=== PATIENT | female | born 1985 | race African-American/Black ===

== ENCOUNTER 2017-04-06 08:39 | Emergency (ER) | payer SELFPAY ==
[~2017-04-06] VITALS: Ht 160 cm; Wt 72.6 kg
[~2017-04-06 08:39] MED LIST: ALPR0.5T; PROPANOLOL
[2017-04-06] MEDS ORDERED: LABETALOL HCL 5 MG/ML 4ML SYRINGE IV ONE ×2 (09:30→11:00)
[2017-04-06 09:31] LABS: Basophils # (auto) 0 uL; Basophils % (auto) 0.6 % (0.0-2.0); CONDITION Y; Eosinophils # (auto) 0.4 uL; Eosinophils % (auto) 4.9 % (0.0-7.0); Hematocrit 35.5 % (36.0-46.0); Hemoglobin 12.1 g/dL (12.2-16.2); Lymphocytes # (auto) 2.4 uL; Mean Corpuscular Hemoglobin 32.7 pg (28.0-32.0); Mean Corpuscular Hgb Conc. 34.2 g/dL (32.0-36.0); Mean Corpuscular Volume 95.8 fL (80.0-100.0); Mean Platelet Volume 8.3 fL (7.4-10.4); Monocytes # (auto) 0.4 uL; Monocytes % (auto) 5.4 % (0.0-12.0); Neutrophils # (auto) 4.1 uL; Neutrophils % (auto) 56.1 % (37.0-80.0); Platelet Count (auto) 326 10^3/uL (140-450); Red Cell Distribution Width 12.6 % (11.6-16.0); White Blood Cell 7.3 10^3/uL (4.4-10.8)
[2017-04-06 10:13] LABS: Albumin 3.4 g/dL (3.4-5.0); Bilirubin, Total 0.2 mg/dL (0.2-1.0); Calcium 8.4 mg/dL (8.5-10.1); Magnesium 2.3 mg/dL (1.6-2.6); Potassium 3.5 mmol/L (3.5-5.1); Total Protein 8.2 g/dL (6.4-8.2)
[2017-04-06] MEDS ORDERED: IBUPROFEN 800 MG TAB PO ONE (10:15)
[2017-04-06] MEDS ORDERED: cloNIDine HCL 0.1 MG TAB PO ONE (10:15)
[2017-04-06] MEDS ORDERED: LORazepam 2MG/ML-1ML VIAL IV ONE (11:00)
[2017-04-06 11:20] VITALS: BP 140/98
== END 2017-04-06 12:07 | disposition home or self-care (01) ==
LOC: ER 08:41
DX: I10 Essential (primary) hypertension (principal); Z86.73 Personal history of transient ischemic attack (TIA), and cerebral infarction without residual deficits
CPT/HCPCS: 36415; 70450; 80053; 82962; 83735; 84484; 85025; 93005; 96374; 96375; 96376; 99285; J2060; J3490

== ENCOUNTER 2017-07-25 07:15 | Emergency (ER) | payer MEDICAID ==
[2017-07-25 09:20] LABS: Basophils # (auto) 0.1 uL; Basophils % (auto) 1.1 % (0.0-2.0); Eosinophils # (auto) 0.2 uL; Eosinophils % (auto) 2.9 % (0.0-7.0); Hematocrit 39.5 % (36.0-46.0); Hemoglobin 13.3 g/dL (12.2-16.2); Lymphocytes % (auto) 28.2 % (10.0-50.0); Mean Corpuscular Hemoglobin 32.8 pg (28.0-32.0); Mean Corpuscular Hgb Conc. 33.7 g/dL (32.0-36.0); Mean Corpuscular Volume 97.4 fL (80.0-100.0); Mean Platelet Volume 8.2 fL (6.9-10.8); Monocytes # (auto) 0.3 uL; Monocytes % (auto) 4.7 % (0.0-12.0); Neutrophils # (auto) 4.4 uL; Neutrophils % (auto) 63.1 % (37.0-80.0); Nucleated Red Blood Cells % 0.1 %; Platelet Count (auto) 375 10^3/uL (140-450); Red Cell Distribution Width 12.9 % (11.8-14.3)
[2017-07-25 09:44] LABS: Albumin 3.9 g/dL (3.4-5.0); BUN/Creatinine Ratio 18.3; Bilirubin, Total 0.2 mg/dL (0.2-1.0); Calcium 8.9 mg/dL (8.5-10.1); Potassium 3.5 mmol/L (3.5-5.1); Total Protein 8.8 g/dL (6.4-8.2)
[2017-07-25] MEDS ORDERED: cloNIDine HCL 0.1 MG TAB PO ONE (10:15)
[2017-07-25] MEDS ORDERED: LORazepam 0.5 MG TAB PO ONE (11:00)
[2017-07-25 11:17] VITALS: BP 145/91
== END 2017-07-25 11:21 | disposition home or self-care (01) ==
LOC: ER 07:15
DX: R07.89 Other chest pain (principal); F41.1 Generalized anxiety disorder; I10 Essential (primary) hypertension; R42 Dizziness and giddiness; Z91.14 Patient's other noncompliance with medication regimen; Z86.73 Personal history of transient ischemic attack (TIA), and cerebral infarction without residual deficits; Z88.8 Allergy status to other drugs, medicaments and biological substances; Z88.1 Allergy status to other antibiotic agents; Z91.040 Latex allergy status; Z79.899 Other long term (current) drug therapy
CPT/HCPCS: 36415; 70450; 71020; 80053; 84484; 85025; 93005

== ENCOUNTER 2018-01-30 10:28 | Emergency (ER) | payer MEDICAID ==
[~2018-01-30] VITALS: Ht 154.9 cm; Wt 77.6 kg
[2018-01-30] MEDS ORDERED: cloNIDine HCL 0.1 MG TAB ONE (10:47)
[2018-01-30] MEDS ORDERED: ONDANSETRON ODT 4 MG TAB PO ONE ×2 (10:49→11:30)
[2018-01-30 11:21] LABS: Basophils # (auto) 0.1 uL; Basophils % (auto) 0.8 % (0.0-2.0); Eosinophils # (auto) 0.1 uL; Eosinophils % (auto) 1.3 % (0.0-7.0); Hematocrit 38.7 % (36.0-46.0); Hemoglobin 12.9 g/dL (12.2-16.2); Lymphocytes % (auto) 37.5 % (10.0-50.0); Mean Corpuscular Hgb Conc. 33.4 g/dL (32.0-36.0); Mean Corpuscular Volume 98.9 fL (80.0-100.0); Monocytes # (auto) 0.4 uL; Neutrophils # (auto) 4.4 uL; Neutrophils % (auto) 55.4 % (37.0-80.0); Nucleated Red Blood Cells % 0.1 %; Platelet Count (auto) 317 10^3/uL (140-450); Red Blood Cells 3.91 10^6/uL (4.0-5.20); Red Cell Distribution Width 12.6 % (11.8-14.3); White Blood Cell 7.9 10^3/uL (4.4-10.8)
[2018-01-30] MEDS ORDERED: cloNIDine HCL 0.1 MG TAB PO ONE (11:30)
[2018-01-30 11:46] LABS: Alanine Aminotransferase 20 U/L (13-56); Albumin 3.9 g/dL (3.4-5.0); Alkaline Phosphatase 58 U/L (45-117); Anion Gap 9 (5-15); Aspartate Aminotransferase 10 U/L (15-37); Bilirubin, Total 0.2 mg/dL (0.2-1.0); Blood Urea Nitrogen 12 mg/dL (7-18); Calcium 8.4 mg/dL (8.5-10.1); Carbon Dioxide 24 mmol/L (21-32); Chloride 107 mmol/L (98-107); GFR African American 143 mL/min; GFR Non-African American 118 mL/min; Glucose 89 mg/dL (74-106); Magnesium 2.7 mg/dL (1.6-2.6); Potassium 3.6 mmol/L (3.5-5.1); Sodium 140 mmol/L (136-145); Total Protein 8.7 g/dL (6.4-8.2)
[2018-01-30 14:45] VITALS: BP 149/97
== END 2018-01-30 18:00 | disposition home or self-care (01) ==
LOC: ER 10:28
DX: I10 Essential (primary) hypertension (principal); R51 Headache; Z86.73 Personal history of transient ischemic attack (TIA), and cerebral infarction without residual deficits
CPT/HCPCS: 36415; 70450; 71045; 80053; 83735; 84484; 84702; 85025; 93005; 99285; Q0162

== ENCOUNTER 2018-07-22 13:09 | Emergency (ER) | payer MEDICAID ==
[~2018-07-22] VITALS: Ht 157.5 cm; Wt 80.7 kg
[2018-07-22] MEDS ORDERED: cloNIDine HCL 0.1 MG TAB PO ONE (15:15)
[2018-07-22 15:26] LABS: Basophils # (auto) 0 uL; Basophils % (auto) 0.5 % (0.0-2.0); Eosinophils # (auto) 0.3 uL; Eosinophils % (auto) 2.8 % (0.0-7.0); Hematocrit 34.9 % (36.0-46.0); Hemoglobin 11.7 g/dL (12.2-16.2); Lymphocytes % (auto) 21.3 % (10.0-50.0); Mean Corpuscular Hemoglobin 33.1 pg (28.0-32.0); Mean Corpuscular Hgb Conc. 33.6 g/dL (32.0-36.0); Mean Corpuscular Volume 98.6 fL (80.0-100.0); Monocytes # (auto) 0.5 uL; Monocytes % (auto) 5.2 % (0.0-12.0); Neutrophils # (auto) 6.6 uL; Neutrophils % (auto) 70.2 % (37.0-80.0); Nucleated Red Blood Cells % 0.1 %; Platelet Count (auto) 314 10^3/uL (140-450); Red Blood Cells 3.54 10^6/uL (4.0-5.20); Red Cell Distribution Width 12.4 % (11.8-14.3); White Blood Cell 9.4 10^3/uL (4.4-10.8)
[2018-07-22 15:29] LABS: Albumin 3.4 g/dL (3.4-5.0); Calcium 8.2 mg/dL (8.5-10.1); Magnesium 2.5 mg/dL (1.6-2.6); Potassium 3.6 mmol/L (3.5-5.1)
[2018-07-22 15:34] LABS: Bilirubin, Total 0.3 mg/dL (0.2-1.0); Total Protein 7.8 g/dL (6.4-8.2)
[2018-07-22] MEDS ORDERED: HYDROcodone-ACET 10/325MG TAB PO ONE (16:00)
[2018-07-22] MEDS ORDERED: traMADol HCL 50 MG TAB PO ONE (16:00)
[2018-07-22 16:35] VITALS: BP 134/91
== END 2018-07-22 16:53 | disposition home or self-care (01) ==
LOC: ER 13:09
DX: I16.0 Hypertensive urgency (principal); I10 Essential (primary) hypertension; F17.210 Nicotine dependence, cigarettes, uncomplicated; F12.90 Cannabis use, unspecified, uncomplicated; Z88.1 Allergy status to other antibiotic agents; Z88.5 Allergy status to narcotic agent; Z91.040 Latex allergy status; Z86.73 Personal history of transient ischemic attack (TIA), and cerebral infarction without residual deficits; Z79.899 Other long term (current) drug therapy
CPT/HCPCS: 36415; 70450; 80053; 82962; 83735; 84484; 85025; 93005

== ENCOUNTER 2020-09-16 15:42 | Emergency (ER) | payer MEDICAID ==
[~2020-09-16] VITALS: Ht 157.5 cm; Wt 89.4 kg
[2020-09-16 16:03] VITALS: BP 156/102
== END 2020-09-16 19:24 | disposition left against medical advice (07) ==
LOC: ER 15:44
DX: R05 Cough (principal); Z53.21 Procedure and treatment not carried out due to patient leaving prior to being seen by health care provider

== ENCOUNTER 2020-09-20 08:12 | Emergency (ER) | payer MEDICAID ==
[~2020-09-20] VITALS: Ht 157.5 cm; Wt 84.8 kg
[2020-09-20 08:30] VITALS: BP 144/109
[2020-09-20] MEDS ORDERED: cefTRIAXone SOD 1,000 MG VL IM ONE (10:00)
== END 2020-09-20 10:54 | disposition home or self-care (01) ==
LOC: ER 08:12
DX: U07.1 COVID-19 (principal); J12.82 Pneumonia due to coronavirus disease 2019
CPT/HCPCS: 36415; 71045; 87426; 96372; 99284; J0696

== ENCOUNTER 2024-07-12 14:46 | Inpatient (IN) | payer MEDICAID ==
[~2024-07-12] VITALS: Ht 154.9 cm; Wt 102.0 kg
--- NOTE | 2024-07-12 15:02 | ED.PDOC ---
HPI Comments 38 year old female presents to the ED with chief complaint of chest pain. Patient reports that she had visited her painter set today and her BP was reading 170/140, so she was advised to call her PCP, who had then told her to come in today. Patient relays that while at her PCP's office, her BP read 160/100s, so she was advised to come into the ED for further evaluation. Patient states she has been experiencing a headache with associated midsternal, stabbing chest pain. Patient notes that she has a history of TIA last happening 5 years ago. Patient denies any N/V/D, SOB, cough, dizziness, fever, or chills. Chief Complaint: Chest Pain Time Seen by MD: 14:58 Primary Care Provider: SHER Reviewed Notes: Nurses Notes, Medications, Allergies Allergies: Coded Allergies: Erythromycin (Verified Allergy, Mild, 02/27/10) Latex (Verified Allergy, Mild, 01/07/11) Codeine (Unverified Allergy, Unknown, 07/25/17) Penicillins (Verified Allergy, Unknown, 07/12/24) Home Meds Reported Medications Alprazolam (Xanax) 0.5 Mg Tb 12/14/11 [Propanolol] No Conflict Check, 0 Refills 01/07/11 Information Source: Patient Mode of Arrival: Ambulatory Severity: Moderate Timing: Hours Duration: Since onset Prehospital treatment: None Location: Substernal Radiation: No Radiation Quality: Stabbing Onset: At Rest Cardiac Risk Factors: HTN PE Risk Factors: None History of: None Past Medical History PAST MEDICAL HISTORY: Anxiety, CVA, HTN, TIA Surgical History: BTL, SLEEVE TAILOR History: No Pertinent SLEEVE TAILOR History Family History Family History: No family hx of HTN Social History Smoker: Cigarettes Alcohol: Occasionally Drugs: Marijuana Lives In: Home Constitutional: denies: chills, diaphoresis, fatigue, fever, malaise, sweats, weakness, others EENTM: denies: blurred vision, double vision, ear bleeding, ear discharge, ear drainage, ear pain, ear ringing, eye pain, eye redness, hearing loss, mouth pain, mouth swelling, nasal discharge, nose bleeding, nose congestion, nose pain, photophobia, tearing, throat pain, throat swelling, voice changes, others Respiratory: denies: cough, hemoptysis, orthopnea, SOB at rest, shortness of breath, SOB with excertion, stridor, wheezing, others Cardiovascular: reports: chest pain; denies: dizzy spells, diaphoresis, Dyspnea on exertion, edema, irregular heart beat, left arm pain, lightheadedness, palpitations, PND, syncope, others Gastrointestinal: denies: abdomen distended, abdominal pain, blood streaked bowels, constipated, diarrhea, dysphagia, difficulty swallowing, hematemesis, melena, nausea, poor appetite, poor fluid intake, rectal bleeding, rectal pain, vomiting, others Genitourinary: denies: abnormal vagina bleeding, burning, dyspareunia, dysuria, flank pain, frequency, hematuria, incontinence, pain, , vagina discharge, urgency, others Neurological: reports: headache; denies: dizziness, fainting, left sided numbness, left sided weakness, numbness, paresthesia, pre-existing deficit, right sided numbness, right sided weakness, seizure, speech problems, tingling, tremors, weakness, others Musculoskeletal: denies: back pain, gout, joint pain, joint swelling, muscle pain, muscle stiffness, neck pain, others Integumetry: denies: bruises, change in color, change in hair/nails, dryness, laceration, lesions, lumps, rash, wounds, others Allergic/Immunocompromised: denies: Difficulty Healing, Frequent Infections, Hives, Itching, others Hematologic/Lymphatic: denies: anemia, blood clots, easy bleeding, easy bruising, swollen glands, others Endocrine: denies: excessive hunger, excessive sweating, excessive thirst, excessive urination, flushing, intolerance to cold, intolerance to heat, unexplained weight gain, unexplained weight loss, others Psychiatric: denies: anxiety, bipolar disorder, depression, hopeless, panic disorder, schizophrenia, sleepless, suicidal, others All Other Systems: Reviewed and Negative Physical Exam General Appearance: No Apparent Distress, Normal HEENT: Normal ENT Inspection, PERRL/EOMI Neck: Full Range of Motion, Non-Tender, Normal, Normal Inspection Respiratory: Chest Non-Tender, Lungs Clear, No Accessory Muscle Use, No Respiratory Distress, Normal Breath Sounds Cardiovascular: No Edema, No JVD, No Murmur, No Gallop, Normal Peripheral Pulses, Regular Rate/Rhythm Breast Exam: Deferred Gastrointestinal: No Organomegaly, Non Tender, No Pulsatile Mass, Normal Bowel Sounds, Soft Genitalia: Deferred Pelvic: Deferred Rectal: Deferred Extremities: No calf tenderness, Normal capillary refill, Normal inspection, Normal range of motion, Non-tender, No pedal edema Musculoskeletal : Apperance: Normal Neurologic: Alert, knitter wire mesh II-XII nml as Tested, No Motor Deficits, Normal Affect, Normal Mood, No Sensory Deficits Cerebellar Function: Normal Reflexes: Normal Skin: Dry, Normal Color, Warm Lymphatic: No Adenopathy Was a procedure done? Was a procedure done?: No CP Differential Dx Differential Diagnosis: MAT Differential Diagnosis: HTN Essential, HTN Accelerated Differential Diagnosis: Gastritis, Myocardial Infarction X-Ray, Labs, Meds, VS Vital Signs Date Time Temp Pulse Resp B/P (MAP) Pulse Ox O2 Delivery O2 Flow Rate FiO2 07/12/24 18:12 69 07/12/24 16:31 Room Air* 0 21 07/12/24 16:31 98.2 80 16 153/103 (120) 100 98.2 07/12/24 15:46 73 07/12/24 14:52 77 07/12/24 14:51 99.1 80 18 166/100 (122) 98 07/12/24 14:51 99.1 80 18 166/100 (122) 98 99.1 Lab Test 07/12/24 18:00 07/12/24 15:50 07/12/24 14:55 Range/Units Troponin I High Sensitivity 22 20 21 </=34 ng/L White Blood Count 11.1 H 4.4-10.8 10^3/uL Red Blood Count 3.58 L 4.0-5.20 10^6/uL Hemoglobin 11.1 L 12.2-16.2 g/dL Hematocrit 33.9 L 36.0-46.0 % Mean Corpuscular Volume 94.6 80.0-100.0 fL Mean Corpuscular Hemoglobin 31.0 28.0-32.0 pg Mean Corpuscular Hemoglobin Concent 32.8 32.0-36.0 g/dL Red Cell Distribution Width 13.4 11.8-14.3 % Platelet Count 404 140-450 10^3/uL Mean Platelet Volume 8.6 6.9-10.8 fL Neutrophils (%) (Auto) 60.2 37.0-80.0 % Lymphocytes (%) (Auto) 30.6 10.0-50.0 % Monocytes (%) (Auto) 6.0 0.0-12.0 % Eosinophils (%) (Auto) 2.2 0.0-7.0 % Basophils (%) (Auto) 1.0 0.0-2.0 % Neutrophils # (Auto) 6.7 1.6-8.6 10 ^3/uL Lymphocytes # (Auto) 3.4 0.4-5.4 10 ^3/uL Monocytes # (Auto) 0.7 0-1.3 10 ^3/uL Eosinophils # (Auto) 0.2 0-0.8 10 ^3/uL Basophils # (Auto) 0.1 0-0.2 10 ^3/uL Nucleated Red Blood Cells 0.1 % Sodium Level 138 136-145 mmol/L Potassium Level 3.7 3.5-5.1 mmol/L Chloride Level 105 98-107 mmol/L Carbon Dioxide Level 25 20-31 mmol/L Anion Gap 8 5-15 Blood Urea Nitrogen 12 9-23 mg/dL Creatinine 0.80 0.550-1.02 mg/dL Glomerular Filtration Rate Calc 98 >90 mL/min BUN/Creatinine Ratio 15.0 10.0-20.0 Serum Glucose 85 74-106 mg/dL Calcium Level 9.7 8.7-10.4 mg/dL Chest XR: FINDINGS: Lines and Tubes: None Lungs: No focal consolidation. Pleura: No effusion. No pneumothorax. Cardiomediastinal contours: Unremarkable Bones: No acute osseous abnormality. IMPRESSION: No acute cardiopulmonary disease. Images Reviewed?: Images reviewed and evaluated by me Time of 1ST Reevaluation: 15:58 Reevaluation 1ST: Unchanged Patient Education/Counseling: Diagnosis, Treatment Family Education/Counseling: No Family Present Departure 1 Departure Time of Disposition: 20:44 (Patient presented with chest pain that was concerning for possible STEMI, ACS, PE, Pneumonia, Muscle Strain, COPD, Dissection. Data: 1. I ordered and reviewed the result of at least 3 labs including a CBC, BMP, and Troponin. 2. I independently interpreted the following tests: EKG which shows sinus rhythm and Chest X-ray which shows benign chest.Risk:This patient has a high risk of morbidity due to further diagnostic testing or treatment and may suffer from an acute cardiac or respiratory disorder. Workup reveals concern for ACS and patient should be admitted for further workup and possible expert consultation. ) Impression: Primary Impression: Acute chest pain Additional Impression: Under observation for suspected coronary artery disease Disposition: ADMITTED INPATIENT Admit to: Med Surg Condition: Serious Critical Care Note Critical Care Time?: Yes Critical care comment: Acute chest pain Authorized and Performed by: Humberto Amaral MD Total critical care time: Approximately 36 minutes Due to a high probability of clinically significant, life threatening deterioration, the patient required my highest level of preparedness to intervene emergently and I personally spent this critical care time directly and personally managing the patient. This critical care time included obtaining a history; examining the patient; pulse oximetry; ordering and review of studies; arranging urgent treatment with development of a management plan; evaluation of patient's response to treatment; frequent reassessment; and, discussions with other providers. This critical care time was performed to assess and manage the high probability of imminent, life-threatening deterioration that could result in multi-organ failure. It was exclusive of separately billable procedures and treating other patients and teaching time. Please see my other sections and the rest of the note for further information on patient assessment and treatment. Stability Stability form required: No Heart Score Heart Score: Heart Score Response (Comments) Value History N/A 0 EKG N/A 0 Age N/A 0 Risk Factors N/A 0 Troponin N/A 0 Total 0 I personally scribed for HUMBERTO AMARAL MD ([email or web address]) on 07/12/24 at 15:02. Electronically submitted by Derick Fountain ([email or web address]). I personally scribed for HUMBERTO AMARAL MD ([email or web address]) on 07/12/24 at 18:51. Electronically submitted by Derick Fountain ([email or web address]). HUMBERTO AMARAL MD Jul 12, 2024 15:02
--- NOTE | 2024-07-12 18:48 | DVH ---
XY CHEST TWO VIEWS ROUTINE CLINICAL HISTORY: chest pain COMPARISON: None TECHNIQUE: Frontal and lateral view of the chest was obtained FINDINGS: Lines and Tubes: None Lungs: No focal consolidation. Pleura: No effusion. No pneumothorax. Cardiomediastinal contours: Unremarkable Bones: No acute osseous abnormality. IMPRESSION: No acute cardiopulmonary disease.
[2024-07-12 20:01] LABS: Basophils # (auto) 0.1 10 ^3/uL (0-0.2); Eosinophils # (auto) 0.2 10 ^3/uL (0-0.8); Eosinophils % (auto) 2.2 % (0.0-7.0); Hematocrit 33.9 % (36.0-46.0); Hemoglobin 11.1 g/dL (12.2-16.2); Lymphocytes # (auto) 3.4 10 ^3/uL (0.4-5.4); Lymphocytes % (auto) 30.6 % (10.0-50.0); Mean Corpuscular Hgb Conc. 32.8 g/dL (32.0-36.0); Mean Corpuscular Volume 94.6 fL (80.0-100.0); Monocytes # (auto) 0.7 10 ^3/uL (0-1.3); Neutrophils # (auto) 6.7 10 ^3/uL (1.6-8.6); Neutrophils % (auto) 60.2 % (37.0-80.0); Nucleated Red Blood Cells % 0.1 %; Platelet Count (auto) 404 10^3/uL (140-450); Red Blood Cells 3.58 10^6/uL (4.0-5.20); Red Cell Distribution Width 13.4 % (11.8-14.3); White Blood Cell 11.1 10^3/uL (4.4-10.8)
[2024-07-12 20:09] LABS: Chloride 105 mmol/L (98-107); Potassium 3.7 mmol/L (3.5-5.1); Sodium 138 mmol/L (136-145)
[2024-07-12 20:10] LABS: Anion Gap 8 (5-15); Calcium 9.7 mg/dL (8.7-10.4); Carbon Dioxide 25 mmol/L (20-31)
[2024-07-12 20:15] LABS: Blood Urea Nitrogen 12 mg/dL (9-23); Glucose 85 mg/dL (74-106)
[2024-07-12] MEDS: ONDANSETRON HCL 4 MG/2 ML VIAL IV ONE (21:13)
[2024-07-12] MEDS: MORPHINE SULFATE 4 MG/ML SYR/VIAL IV ONE (21:14)
[2024-07-12 21:19] VITALS: PULSE 75; RESP 16; O2SAT 100
[2024-07-12] MEDS ORDERED: NITROGLYCERIN 0.4 MG SL TAB SL PRN (22:00)
[2024-07-12] MEDS ORDERED: ACETAMINOPHEN 325 MG TAB PO PRN (22:00)
[2024-07-12] MEDS ORDERED: TEMAZEPAM 15 MG CAP PO PRN (22:00)
--- NOTE | 2024-07-12 22:20 | DVHHP2 ---
History of Present Illness Reason for Visit: Chest pain History of Present Illness 38-year-old female presents for evaluation of chest pain. The patient reports a two day history of chest pain. He states that initially she had substernal squeezing like chest pain and subsequently became sharp and nonradiating. She denies nausea or vomiting reports mild shortness for breath. She also reports having a mild headache. No blurred vision or unilateral weakness. No other acute complaints reported. Past Medical History CVA and hypertension Past Surgical History and BTL Family History Noncontributory Smoke: <1 pack per day ALCOHOL: occassional Drugs: Marijuana Lives: with Family Review of Systems Review of Systems Review of systems are currently negative otherwise addressed in HPI. Allergies: Coded Allergies: Erythromycin (Verified Allergy, Mild, 02/27/10) Latex (Verified Allergy, Mild, 01/07/11) Codeine (Unverified Allergy, Unknown, 07/25/17) Penicillins (Verified Allergy, Unknown, 07/12/24) Medications Current Medications Medications Dose Ordered Sig/Chen[place] Route Start Time Stop Time Status Last Admin Dose Admin Hydralazine HCl 10 mg Q6HP PRN IV 07/12/24 22:00 Hydralazine HCl 25 mg Q12HR PO 07/12/24 22:00 Aspirin 81 mg DAILY PO 07/13/24 10:00 Atorvastatin Calcium 10 mg HS PO 07/12/24 22:00 Metoprolol Succinate 50 mg DAILY PO 07/13/24 10:00 Lisinopril 40 mg DAILY PO 07/13/24 10:00 Buspirone HCl 5 mg DAILY PO 07/13/24 10:00 Temazepam 15 mg QHSP PRN PO 07/12/24 22:00 Ondansetron HCl 4 mg Q4HP PRN IV 07/12/24 22:00 Acetaminophen 650 mg Q6HP PRN PO 07/12/24 22:00 Nitroglycerin 0.4 mg Q5MINP PRN SL 07/12/24 22:00 Morphine Sulfate 2 mg Q30M PRN IV 07/12/24 22:00 Exam Vital Signs Vital Signs Date Time Temp Pulse Resp B/P (MAP) Pulse Ox O2 Delivery O2 Flow Rate FiO2 07/12/24 21:19 75 16 100 Room Air* 0 21 07/12/24 21:19 98.3 178/94 (122) 98.3 Exam Gen: 38-year-old female in no apparent distress. Skin: Warm, dry, normal color and texture, no rash. HEENT: Normocephalic atraumatic, mucous membranes moist and pink. Neck: Cervical and supraclavicular nodes normal without enlargement, trachea is midline, thyroid gland is normal without masses. Pulmonary: Clear to auscultation and percussion bilaterally. Cardiac: Regular rate and rhythm. No murmur Abdomen: Soft, nontender, nondistended, bowel sounds present all 4 quadrants, no guarding, no rigidity, no organomegaly. Extremities: No cyanosis, clubbing, no edema Neuro: Cranial nerves II through XII grossly intact, normal affect and speech, no focal motor deficits. Labs/Xrays ORDERING PHYSICIAN: HUMBERTO EMMANUEL MD PROCEDURE(s): CXR2 - CHEST TWO VIEWS ROUTINE REASON: chest pain ORDER NUMBER(s): [id number], ACCESSION NUMBER(s): [id number] XY CHEST TWO VIEWS ROUTINE CLINICAL HISTORY: chest pain COMPARISON: None TECHNIQUE: Frontal and lateral view of the chest was obtained FINDINGS: Lines and Tubes: None Lungs: No focal consolidation. Pleura: No effusion. No pneumothorax. Cardiomediastinal contours: Unremarkable Bones: No acute osseous abnormality. IMPRESSION: No acute cardiopulmonary disease. Labs Test 07/12/24 18:00 07/12/24 14:55 Range/Units Troponin I High Sensitivity 22 </=34 ng/L White Blood Count 11.1 H 4.4-10.8 10^3/uL Red Blood Count 3.58 L 4.0-5.20 10^6/uL Hemoglobin 11.1 L 12.2-16.2 g/dL Hematocrit 33.9 L 36.0-46.0 % Mean Corpuscular Volume 94.6 80.0-100.0 fL Mean Corpuscular Hemoglobin 31.0 28.0-32.0 pg Mean Corpuscular Hemoglobin Concent 32.8 32.0-36.0 g/dL Red Cell Distribution Width 13.4 11.8-14.3 % Platelet Count 404 140-450 10^3/uL Mean Platelet Volume 8.6 6.9-10.8 fL Neutrophils (%) (Auto) 60.2 37.0-80.0 % Lymphocytes (%) (Auto) 30.6 10.0-50.0 % Monocytes (%) (Auto) 6.0 0.0-12.0 % Eosinophils (%) (Auto) 2.2 0.0-7.0 % Basophils (%) (Auto) 1.0 0.0-2.0 % Neutrophils # (Auto) 6.7 1.6-8.6 10 ^3/uL Lymphocytes # (Auto) 3.4 0.4-5.4 10 ^3/uL Monocytes # (Auto) 0.7 0-1.3 10 ^3/uL Eosinophils # (Auto) 0.2 0-0.8 10 ^3/uL Basophils # (Auto) 0.1 0-0.2 10 ^3/uL Nucleated Red Blood Cells 0.1 % Sodium Level 138 136-145 mmol/L Potassium Level 3.7 3.5-5.1 mmol/L Chloride Level 105 98-107 mmol/L Carbon Dioxide Level 25 20-31 mmol/L Anion Gap 8 5-15 Blood Urea Nitrogen 12 9-23 mg/dL Creatinine 0.80 0.550-1.02 mg/dL Glomerular Filtration Rate Calc 98 >90 mL/min BUN/Creatinine Ratio 15.0 10.0-20.0 Serum Glucose 85 74-106 mg/dL Calcium Level 9.7 8.7-10.4 mg/dL Assessment/Plan Assessment/Plan Assessment Chest pain rule out ACS Accelerated hypertension Plan Admit the patient to telemetry to the hospitalist ACS protocol Resume home medications Continue treatment per orders. Plan discussed with: Patient My Orders Orders - PERCY CROOKS AGACNP Procedure Category Date Status Time Hydralazine Injection PHA 07/12/24 In Process (Apresoline Inject 22:00 Hydralazine Hcl PHA 07/12/24 In Process Tablet (Apresoline 22:00 Aspirin Tablet PHA 07/13/24 In Process 10:00 Atorvastatin (Lipitor) PHA 07/12/24 In Process 22:00 Metoprolol Xl PHA 07/13/24 In Process Succinate (Toprol Xl) 10:00 Lisinopril Tablet PHA 07/13/24 In Process (Zestril Tablet) 10:00 Buspirone Hcl Tablet PHA 07/13/24 In Process (Buspar Tablet) 10:00 * Cardiology Consult CONS 07/12/24 Transmitted 21:52 Basic Metabolic Panel LAB 07/13/24 Verified 04:00 Admit ADMIT 07/12/24 Transmitted 21:52 Temazepam (Restoril) PHA 07/12/24 In Process 22:00 Ondansetron Hcl PHA 07/12/24 In Process (Zofran) 22:00 Cardiac DIET 07/13/24 Transmitted Diet-2gna,Lofat,Lochol Breakfast Echo 2d Mode Cardiac US 07/12/24 Logged DOP 21:52 Condition: Fair DEANA 07/12/24 In Process 21:52 Acetaminophen Tablet PHA 07/12/24 In Process (Tylenol Tablet) 22:00 Bedrest With Bathroom DEANA 07/12/24 In Process Privileg 21:52 Nitroglycerin PHA 07/12/24 In Process Sublingual (Ntrostat 22:00 Morphine Sulfate PHA 07/12/24 In Process Injection 22:00 Stat Ekg For Chest DEANA 07/12/24 In Process Pain 21:52 Notify Md Of Changes [facility] 07/12/24 In Process From Base 21:52 Compensation Adjuster For [facility] 07/12/24 In Process 24 Hours 21:52 Emergency Dysrhythmia [facility] 07/12/24 In Process Protocol 21:52 Rhythm Strips Once [facility] 07/12/24 In Process Every Shift 21:52 Oxygen By Nasal RT 07/12/24 Transmitted Cannula 21:52 Date of Service: Jul 12, 2024 Billing Provider: PERCY CROOKS Common Visit Codes: [id number] INP/OBS CARE (HIGH) PERCY CROOKS Jul 12, 2024 22:20
[2024-07-12] MEDS: ATORVASTATIN 20 MG TAB PO SCH (22:46)
[2024-07-12] MEDS: hydrALAZINE HCL 25 MG TAB PO SCH (22:47)
[2024-07-12 23:30] VITALS: PULSE 80; RESP 18; O2SAT 100
[2024-07-13] VITALS (9 sets, daily range): BP systolic 95–157; BP diastolic 73–108; PULSE 78–95; RESP 18–20; TEMP 97.8–98.4; O2SAT 98–100
[2024-07-13] MEDS ORDERED: LISI40TA16 PO (02:42)
[2024-07-13] MEDS ORDERED: METO25TA93 PO (02:42)
[2024-07-13] MEDS ORDERED: TRAM50TA2 PO (02:42)
[2024-07-13] MEDS: hydrALAZINE HCL 20 MG/ML VL IV PRN (03:55)
[2024-07-13 07:14] LABS: Calcium 9.5 mg/dL (8.7-10.4); Chloride 105 mmol/L (98-107); Potassium 3.4 mmol/L (3.5-5.1); Sodium 139 mmol/L (136-145)
[2024-07-13 07:15] LABS: Anion Gap 8 (5-15); Carbon Dioxide 26 mmol/L (20-31)
[2024-07-13 07:20] LABS: BUN/Creatinine Ratio 17.2 (10.0-20.0); Blood Urea Nitrogen 10 mg/dL (9-23); Glucose 89 mg/dL (74-106)
--- NOTE | 2024-07-13 09:09 | ECG ---
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
--- NOTE | 2024-07-13 09:09 | ECG ---
[facility] Test Date: 2024-07-12 Test Time: 14:52:57 Pat Name: YVROSE ANTHONY Department: ER Room: 0272T A Gender: F Egg Caser: STEPHANIE : 1985 Requested By: HUMBERTO EMMANUEL Order Number: [id number] Reading MD: Lj Osorio Measurements Intervals [place] Rate: 77 P: 32 [place]: 134 QRS: 52 QRSD: 78 T: 6 QT: 380 QTc: 431 Interpretive Statements Sinus rhythm Probable LVH with secondary repol abnrm Electronically Signed On 07-14-2024 14:55:07 PDT by Lj Osorio Please click the below link to view image of tracing.
--- NOTE | 2024-07-13 09:10 | ECG ---
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
[2024-07-13] MEDS: busPIRone HCL 10 MG TAB PO SCH (09:25)
[2024-07-13] MEDS: ASPirin 81 mg TAB PO SCH (09:27)
[2024-07-13] MEDS: LISINOPRIL 20 MG TAB PO SCH (09:27)
[2024-07-13] MEDS: POTASSIUM CHL 20 Meq TABLET PO ONE (09:28)
--- NOTE | 2024-07-13 09:28 | DVHINCON2 ---
Date Seen: Jul 13, 2024 Referring Physician EDUARDO Durand Reason for Consultation Chest pain History of Present Illness This is a 38-year-old female who presented to the emergency room with a chief complaint of chest pain since 07/12/24 at 1300. The patient reports she presented to her pain management appointment when she was found with a blood pressure of 170/140 mmHg and was suggested to follow-up with her PCP for blood pressure management. State taking her morning Lisinopril 40mg with scheduled metoprolol in the evenings. She followed-up with her PCP, Dr. Walton, later on during the day with complains of chest pain and PERRY. Described the chest pain as substernal, nonradiating, initially sharp/stabbing in nature and then squeezing, constant, and associated with PERRY, left hand numbness, and a SBP in the 170s mmHg. PCP referred her to the emergency room for further evaluation. She underwent multiple 12 lead electrocardiogram revealing a sinus rhythm with nonspecific ST changes to inferior leads which improved on the 3rd EKG once her blood pressure was well controlled. Serial troponin levels are negative. Significant medical history includes hypertension, TIAs x3, chronic pain syndrome to lower back/plantar fasciitis with tramadol therapy, anxiety, and morbid obesity. Past Medical History Past medical history reviewed. No other significant than mentioned above. Past Surgical History Past surgical history reviewed. No other significant than mentioned above. Family History: Diabetes mellitus G8 FATHER Hypertension G8 MOTHER G8 FATHER Family History Family history reviewed. Social History Denies the use of illicit drugs, alcohol, or tobacco use. Allergies: Coded Allergies: Erythromycin (Verified Allergy, Mild, 02/27/10) Latex (Verified Allergy, Mild, 01/07/11) Codeine (Unverified Allergy, Unknown, 07/25/17) Penicillins (Verified Allergy, Unknown, 07/12/24) Home Meds Reported Medications Metoprolol Succinate (Metoprolol Succinate Er) 25 Mg Tab, 1 TAB PO DAILY, #30 TAB 5 Refills 07/13/24 Tramadol Hcl (Tramadol Hcl) 50 Mg Tab, 50 MG PO, TAB 07/13/24 Lisinopril (Lisinopril) 40 Mg Tab, 1 TAB PO DAILY, #30 TAB 5 Refills 07/13/24 Home Meds Home medications reviewed. Current Medications Current Medications Medications (Trade) Dose Ordered Sig/Chencho Route PRN Reason Start Time Stop Time Status Last Admin Hydralazine HCl (Apresoline Injection) 10 mg Q6HP PRN IV SBP>150 07/12/24 22:00 07/13/24 03:55 Hydralazine HCl (Apresoline Tablet) 25 mg Q12HR PO 07/12/24 22:00 07/12/24 22:47 Aspirin 81 mg DAILY PO 07/13/24 10:00 Atorvastatin Calcium (Lipitor) 10 mg HS PO 07/12/24 22:00 07/12/24 22:46 Metoprolol Succinate (Toprol Xl) 50 mg DAILY PO 07/13/24 10:00 Lisinopril (Zestril Tablet) 40 mg DAILY PO 07/13/24 10:00 Buspirone HCl (Buspar Tablet) 5 mg DAILY PO 07/13/24 10:00 Temazepam (Restoril) 15 mg QHSP PRN PO FOR INSOMNIA 07/12/24 22:00 Ondansetron HCl (Zofran) 4 mg Q4HP PRN IV NAUSEA / VOMITING 07/12/24 22:00 Acetaminophen (Tylenol Tablet) 650 mg Q6HP PRN PO PAIN SCALE 1-3 OR TEMP>100.4 07/12/24 22:00 Nitroglycerin (Ntrostat Sublingual) 0.4 mg Q5MINP PRN SL FOR CHEST PAIN 07/12/24 22:00 Morphine Sulfate 2 mg Q30M PRN IV FOR CHEST PAIN 07/12/24 22:00 Review of Systems Constitutional: No symptom reported Ears, Nose, & Throat: No symptom reported Eyes: No symptom reported Neurological: PERRY, left hand numbness Pulmonary/Respiratory: No symptom reported Cardiovascular: Chest pain Gastrointestinal: No symptom reported Genitourinary: No symptom reported Musculoskeletal: No symptom reported Skin: No symptom reported Psychiatric: No symptom reported Endocrine: No symptom reported Hemotologic/Lymphatic: No symptom reported Vital Signs Vital Signs Date Time Temp Pulse Resp B/P (MAP) Pulse Ox O2 Delivery O2 Flow Rate FiO2 07/13/24 08:38 98.0 83 20 123/87 (99) 99 98.0 07/12/24 23:30 Room Air* 0 21 Physical Exam General Appearance: Cooperative. Well developed. Morbidly obese. In no acute distress Head Exam: Normal inspection Neck Exam: Normal inspection. Non-tender. Normal alignment Pulmonary/Respiratory: Chest non-tender. Clear bilateral breath sounds Cardiovascular/Chest: Regular rate and rhythm. S1, S2. NSR. No murmurs. No JVD. Peripheral Pulses: 2+ Radial (R). 2+ Radial (L). 2+ Pedal (R). 2+ Pedal (L) Abdominal Exam: Normal bowel sounds. Soft. Nontender. No hepatospenomegaly. No masses Ankle Exam: Negative ankle edema Lower extremities: Negative lower extremity edema Neuro/Mental Status: A&O x4. Coherent Thoughts/Psych: Normal thought pattern. Appropriate mood and affect. Good judgement and insight Appearance: In no acute distress Skin Exam: Normal inspection. Normal color. Warm. Dry Labs/Diagnostic Data Labs Test 07/13/24 05:07 07/12/24 18:00 07/12/24 14:55 Range/Units Sodium Level 139 136-145 mmol/L Potassium Level 3.4 L 3.5-5.1 mmol/L Chloride Level 105 98-107 mmol/L Carbon Dioxide Level 26 20-31 mmol/L Anion Gap 8 5-15 Blood Urea Nitrogen 10 9-23 mg/dL Creatinine 0.58 0.550-1.02 mg/dL Glomerular Filtration Rate Calc 120 >90 mL/min BUN/Creatinine Ratio 17.2 10.0-20.0 Serum Glucose 89 74-106 mg/dL Calcium Level 9.5 8.7-10.4 mg/dL Troponin I High Sensitivity 22 </=34 ng/L White Blood Count 11.1 H 4.4-10.8 10^3/uL Red Blood Count 3.58 L 4.0-5.20 10^6/uL Hemoglobin 11.1 L 12.2-16.2 g/dL Hematocrit 33.9 L 36.0-46.0 % Mean Corpuscular Volume 94.6 80.0-100.0 fL Mean Corpuscular Hemoglobin 31.0 28.0-32.0 pg Mean Corpuscular Hemoglobin Concent 32.8 32.0-36.0 g/dL Red Cell Distribution Width 13.4 11.8-14.3 % Platelet Count 404 140-450 10^3/uL Mean Platelet Volume 8.6 6.9-10.8 fL Neutrophils (%) (Auto) 60.2 37.0-80.0 % Lymphocytes (%) (Auto) 30.6 10.0-50.0 % Monocytes (%) (Auto) 6.0 0.0-12.0 % Eosinophils (%) (Auto) 2.2 0.0-7.0 % Basophils (%) (Auto) 1.0 0.0-2.0 % Neutrophils # (Auto) 6.7 1.6-8.6 10 ^3/uL Lymphocytes # (Auto) 3.4 0.4-5.4 10 ^3/uL Monocytes # (Auto) 0.7 0-1.3 10 ^3/uL Eosinophils # (Auto) 0.2 0-0.8 10 ^3/uL Basophils # (Auto) 0.1 0-0.2 10 ^3/uL Nucleated Red Blood Cells 0.1 % Assessment Chest pain in the setting of hypertensive urgency. Rule out structural heart disease Hypokalemia Chronic pain syndrome Hx multiple TIAs Morbid obesity Plan/Recommendation (Dr. Soria) The patient presents with chest pain in the setting of hypertensive urgency and a Heart Score of 2, low for major cardiac events. We will continue further evaluation with a transthoracic echocardiogram to assess cardiac function. We also recommend aggressive blood pressure management, a 2 g sodium diet, and weight loss. She can benefit from an outpatient stress test if deemed to be ne cessary. In the setting of an unremarkable echocardiogram, there is no further cardiac workup indicated at this time. Thank you for allowing us to participate in this patient's care. Please call if you have any questions or concerns. This medical document was created using an electronic medical record system with voice recognition software and computerized dictation system. Although this document has been carefully reviewed, there might still be some phonetic and typographical errors. Occasional wrong-word or ``sound-alike substitutions may have occurred due to the inherent limitations of voice recognition software. These areas are purely typographical due to imperfections of the software programs and do not reflect any compromise in the patient's medical care. Please read the chart carefully and recognize, using context, where these substitutions have occurred. Plan discussed with: Patient, Other Date of Service: Jul 13, 2024 Billing Provider: PHILIPP SORIA MD Cardiology Common Codes: 71786-DCBECTO INP/OBS CARE (High) DEJON LIN WINE PASTEUR[employer]ER Jul 13, 2024 09:28
[2024-07-13 09:39] LABS: Magnesium 2.3 mg/dL (1.6-2.6)
[2024-07-13] MEDS: METOPROLOL SUCCINATE XL 50 MG TAB PO SCH (10:00)
--- NOTE | 2024-07-13 11:12 | DVHDS2 ---
Discharge Summary Date of Admission Jul 12, 2024 at 21:52 Date of Discharge: Jul 13, 2024 Admitting Diagnosis Chest pain, rule out ACS Labs/Diagnostic Data: Laboratory Results Test 07/13/24 05:07 07/12/24 18:00 07/12/24 14:55 Sodium Level 139 mmol/L (136-145) Potassium Level 3.4 mmol/L (3.5-5.1) Chloride Level 105 mmol/L (98-107) Carbon Dioxide Level 26 mmol/L (20-31) Anion Gap 8 (5-15) Blood Urea Nitrogen 10 mg/dL (9-23) Creatinine 0.58 mg/dL (0.550-1.02) Glomerular Filtration Rate Calc 120 mL/min (>90) BUN/Creatinine Ratio 17.2 (10.0-20.0) Serum Glucose 89 mg/dL (74-106) Hemoglobin A1c 4.6 % A1C (<5.7) Calcium Level 9.5 mg/dL (8.7-10.4) Magnesium Level 2.3 mg/dL (1.6-2.6) Triglycerides Level 96 mg/dL (< 150) Cholesterol Level 158 mg/dL (< 200) LDL Cholesterol 88 mg/dL (< 100) HDL Cholesterol 58 mg/dL (40-59) Vitamin D 25-Hydroxy 40.2 ng/mL (30.0-100) Thyroid Stimulating Hormone (TSH) 1.85 uIU/mL (0.55-4.78) Troponin I High Sensitivity 22 ng/L (</=34) White Blood Count 11.1 10^3/uL (4.4-10.8) Red Blood Count 3.58 10^6/uL (4.0-5.20) Hemoglobin 11.1 g/dL (12.2-16.2) Hematocrit 33.9 % (36.0-46.0) Mean Corpuscular Volume 94.6 fL (80.0-100.0) Mean Corpuscular Hemoglobin 31.0 pg (28.0-32.0) Mean Corpuscular Hemoglobin Concent 32.8 g/dL (32.0-36.0) Red Cell Distribution Width 13.4 % (11.8-14.3) Platelet Count 404 10^3/uL (140-450) Mean Platelet Volume 8.6 fL (6.9-10.8) Neutrophils (%) (Auto) 60.2 % (37.0-80.0) Lymphocytes (%) (Auto) 30.6 % (10.0-50.0) Monocytes (%) (Auto) 6.0 % (0.0-12.0) Eosinophils (%) (Auto) 2.2 % (0.0-7.0) Basophils (%) (Auto) 1.0 % (0.0-2.0) Neutrophils # (Auto) 6.7 10 ^3/uL (1.6-8.6) Lymphocytes # (Auto) 3.4 10 ^3/uL (0.4-5.4) Monocytes # (Auto) 0.7 10 ^3/uL (0-1.3) Eosinophils # (Auto) 0.2 10 ^3/uL (0-0.8) Basophils # (Auto) 0.1 10 ^3/uL (0-0.2) Nucleated Red Blood Cells 0.1 % Other Laboratory Tests 07/13/24 05:07 07/12/24 14:55 Brief Hx & Hospital Course: History of Present Illness 38-year-old female presents for evaluation of chest pain. The patient reports a two day history of chest pain. He states that initially she had substernal squeezing like chest pain and subsequently became sharp and nonradiating. She denies nausea or vomiting reports mild shortness for breath. She also reports having a mild headache. No blurred vision or unilateral weakness. No other acute complaints reported. Course of hospitalization: Discussion was made with the patient regarding her symptoms. She states that all of her symptoms have resolved. Cardiology consultation has been obtained. Chest x-ray unremarkable. EKG x3 unremarkable. Troponins x3 all normal. Patient was pending echocardiogram. The patient was agreeable to be discharged home after echocardiogram has been read if there are no abnormalities that need follow up. She will continue with all of her previous antihypertensives in addition to new prescription provided by her PCP, hydrochlorothiazide. Physical examination General: Alert and Oriented x3. No acute distress. Well-nourished. Obese Eyes: EOMI. Anicteric. HENT: Moist mucous membranes. Lungs: Clear to auscultation bilaterally. No accessory muscle use. Cardiovascular: Regular rate and rhythm. No murmur. No JVD. Abdomen: Soft, non-tender and non-distended. No palpable masses. Extremities: No edema. Non-tender. Skin: No rashes or lesions. Warm. Neurologic: No focal neurological deficits. CN II-XII grossly intact, but not individually tested. Psychiatric: Cooperative. Appropriate mood and affect. Total time spent with patient discussing and formulating plan of care: 35 minutes. This medical document was created using an electronic medical record system with [employer] dictation system. Although this document has been carefully reviewed, there may still be some phonetic and typographical errors. These areas are purely typographical due to imperfections of the software programs, and do not reflect any compromise in the patient's medical care. Consults/Reason for consult Cardiology: Chest pain Condition at Discharge: Fair Final Diagnosis/Problems List Hypertensive crisis Secondary Diagnosis: Chronic pain syndrome Anxiety Obese Acute coronary syndrome ruled out Discharge Disposition: Home Discharge Instruct/Medications Diet: Regular Activity: No Restrictions, As Tolerated Follow Up/Referral: Follow up with Dr. Goldstein in 1-2 weeks Medications: Continue all previous home medications as ordered by PCP 38 Discharge Statement: "Patient was advised to return to the ER or call 911 if any headaches, dizziness, shortness of breath, chest pain, abdominal pain, bleeding, fevers, or worsening of medical condition. Patient was counseled about treatment plan, medications, possible side effects, patientverbalized understanding. All questions were answered to the best of my ability. This discharge took greater then 30 minutes in planning, reviewing documentation, counseling the patient, and discussing with other team members." ASSESSMENT ASSESSMENT Assessment Hypertensive crisis Date of Service: Jul 13, 2024 Billing Provider: LEROY BAUER NP Common Visit Codes: 35264-VZJ/OBS DISCH DAY >30min LEROY BAUER NP Jul 13, 2024 11:12
[2024-07-13 13:09] LABS: Amphetamine Screen, Urine Neg (NEGATIVE); Barbiturate Scree,Urine Neg (NEGATIVE); Benzodiazephine Screen, Urine Neg (NEGATIVE); Cocaine Screen, Urine Neg (NEGATIVE); Opiate Scree,Urine Neg (NEGATIVE)
[2024-07-13 13:10] LABS: Cannabinoid Screen, Urine Neg (NEGATIVE); Phencyclidine Screen, Urine Neg (NEGATIVE)
[2024-07-13] MEDS: MORPHINE SULFATE INJ 2 MG/ml SYRG IV PRN (23:50)
[2024-07-13] MEDS: ONDANSETRON HCL 4 MG/2 ML VIAL IV PRN (23:51)
[2024-07-14] VITALS: BP 129/76; PULSE 69; TEMP 98.1; O2SAT 98
[2024-07-14 05:00] VITALS: BP 127/79; PULSE 68; TEMP 98.1; O2SAT 98
[2024-07-14 08:00] VITALS: PULSE 71; RESP 18
[2024-07-14 08:37] VITALS: BP 133/81; PULSE 69; RESP 17; TEMP 97.9; O2SAT 99
--- NOTE | 2024-07-14 09:35 | DVHSR ---
APPROVED REPORT EXAM: Two-dimensional and M-mode echocardiogram with Doppler and color Doppler. Blood Pressure: 95/73 mmHg INDICATION Chest Pain RISK FACTORS Height: 5' 1", Weight: 220 DIMENSIONS LVDd4.6 (3.8-5.7cm)LA (2D)3.4 (1.9-4.0cm)Aortic Root2.9 (2.0-3.7cm) LVDs3.3 (2.5-4.0cm)LA (MM) (1.9-4.0cm)Aortic Cusp Exc1.5 (1.5-2.0cm) EF (%) 56.0 (55-70%)Rt. Atrium3.2 (1.9-4.0cm)Asc. Aorta cm IVSd1.1 (0.7-1.1cm)RV (D) (1.8-2.4cm) PWd1.1 (0.7-1.1cm) Mitral Valve MitralMitral Stenosis E wave0.90m/sMV Mean GR.mmHg A wave0.60m/sMV Peak GR.mmHg E/A ratio1.52D MVAcm2 Aortic Valve Aortic ValveAortic Stenosis V11.20m/Aníbal Mean GR.4mmHg V21.40m/Aníbal Peak GR.8mmHg LVOT Diameter2.1 (1.8-2.4cm)Doppler AVA2.97cm2 Pulmonic Valve V20.80m/s Conclusion Normal left ventricular size and dimension. Normal left ventricular systolic function estimated ejec tion fraction 55% there is a grade 1 diastolic dysfunction. Normal right ventricular size and dimension. Normal right ventricular systolic function. Normal biatrial size and dimension. Normal aortic valve structure and function. Normal mitral valve structure and function. Normal tricuspid valve structure function. The pulmonary valve is grossly normal. No pericardial effusion.
[2024-07-14 09:37] LABS: Hepatitis B Surface Antigen Negative (Negative)
[2024-07-14 09:58] LABS: Hepatitis C Antibody Negative (Negative)
== END 2024-07-14 12:25 | disposition home or self-care (01) | DRG 199 ==
LOC: ER 14:46 → TELE 21:52 → TELE-WESTW 07-13 01:38
PROVIDERS: ADMIT Nurse Practitioner; ATTEND Nurse Practitioner Acute Care
DX: I16.9 Hypertensive crisis, unspecified (principal); E66.01 Morbid (severe) obesity due to excess calories; G89.4 Chronic pain syndrome; E87.6 Hypokalemia; F41.9 Anxiety disorder, unspecified; F17.210 Nicotine dependence, cigarettes, uncomplicated; Z88.0 Allergy status to penicillin; Z88.1 Allergy status to other antibiotic agents; Z86.73 Personal history of transient ischemic attack (TIA), and cerebral infarction without residual deficits; Z83.3 Family history of diabetes mellitus; Z82.49 Family history of ischemic heart disease and other diseases of the circulatory system; Z68.41 Body mass index [BMI] 40.0-44.9, adult
CPT/HCPCS: 36415; 71046; 80048; 80061; 80307; 82306; 83036; 83735; 84443; 84484; 85025; 86803; 87340; 93005; 93306; 99291; G0378; J2405